=== PATIENT | female | born 1960 | race Caucasian/White ===

== ENCOUNTER 2017-10-05 06:01 | Inpatient (IN) | payer OTHER ==
[~2017-10-05 06:01] MED LIST: Buffered Lidocaine 0.9% SYRIN* 5 ML/SYR SYRINGE INTRADERM ONE; Famotidine IV* 10 MG/ML 2 ML (20 mg) IV ONE; Metoclopramide TAB* 10 MG PO ONE
--- OUTSIDE RECORDS SUMMARY | 2017-10-05 06:05 | XMS REPORT ---
:1960 External Reference #:[id number] Author Organization [employer] Address [address] [place] [address] [place] [address] Phone [phone] Care Team Providers Name Role Phone Wai Farmer MD Primary Care Physician Unavailable Payers Type Date Identification Numbers Payment Provider Subscriber Commercial Policy Number: [id number] [employer] Gretchen Jenkins PayID: [id number] [address] [place] [address] Problems Date Description Provider Status Onset: Diabetes mellitus Active Social History Type Date Description Comments Marital Status Lives With Partner Lives With 1 dog Occupation Currently Working 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 Allergies, Adverse Reactions, Alerts Date Description Reaction Status Severity Comments 09/03/2017 NKDA active Medications Medication Date Status Form Strength Qnty SIG Indications Ordering Provider Omeprazole / Active Capsules 20mg 1 by mouth Unknown 0000 DR every day Atorvastatin / Active Tablets 20mg take 1 Unknown Calcium 0000 tablet at bedtime Metformin HCL / Active Tablets 1000mg take one Unknown 0000 tablet by mouth twice a day (soon to be d/c'ed per pt 6/8/18) Iron 00// Active 1 by mouth Unknown 0000 two times per day Multivitamin 00/00/ Active Tablets 1 by mouth Unknown 0000 every day Calcium 00/00/ Active Tablets 500-125mg- 1 by mouth Unknown 500/Vitamin D 0000 Unit twice a day Ammonium / Active Cream 12% Apply Unknown Lactate 0000 topically as needed Glucagon 00/ Active Kit 1mg as needed Unknown Emergency 0000 Omnipod Pump / Active Infuses Unknown 0000 insulin as needed Humalog 00/ Active Solution 100Unit/ML As needed, Unknown 0000 determined by insulin pump Lantus / Active Solution 100Unit/ML As needed, Unknown 0000 back up for pump No Active Unknown Medications 2017 - 2017 Vital Signs Date Vital Result Comment 09/03/2017 Height 65 inches 5'5" Weight 266.00 lb Heart Rate 68 /min BP Systolic Sitting 146 mmHg Rue large cuff BP Diastolic Sitting 94 mmHg Rue large cuff Respiratory Rate 16 /min O2 % BldC Oximetry 98 % On Ra BMI (Body Mass Index) 44.3 kg/m2 Neck Circumference in inches 18.5 Results Test Date Test Result H/L Range Note Basic Metabolic Panel 10/01/2017 Sodium 137 mmol/L 135-145 1 Potassium 4.5 mmol/L 3.5-5.0 1 Chloride 104 mmol/L 101-111 1 Co2 Carbon Dioxide 28 mmol/L 22-32 1 Anion Gap 5 mmol/L 2-11 1 Glucose 125 mg/dL High 70-100 1 Blood Urea Nitrogen 14 mg/dL 6-24 1 Creatinine 0.71 mg/dL 0.51-0.95 1 BUN/Creatinine Ratio 19.7 8-20 1 Calcium 9.1 mg/dL 8.6-10.3 1 Egfr Non- 85.5 >60 1 Egfr 103.4 >60 1, 2 CBC No Diff 10/01/2017 White Blood Count 8.7 10^3/uL 3.5-10.8 1 Red Blood Count 4.54 10^6/uL 4.00-5.40 1 Hemoglobin 13.1 g/dL 12.0-16.0 1 Hematocrit 39 % 35-47 1 Mean Corpuscular Volume 85 fL 80-97 1 Mean Corpuscular Hemoglobin 29 pg 27-31 1 Mean Corpuscular HGB Conc 34 g/dL 31-36 1 Red Cell Distribution Width 14 % 10.5-15 1 Platelet Count 348 10^3/uL 150-450 1 Mean Platelet Volume 8.5 um3 7.4-10.4 1 1 AA 10/05 2 Because ethnic data is not always readily available, this report includes an eGFR for both -Americans and non- Americans. The National Kidney Disease Education Program (NKDEP) does not endorse the use of the MDRD equation for patients that are not between the ages of 18 and 70, are , have extremes of body size, muscle mass, or nutritional status, or are non- or non-. According to the National Kidney Foundation, irrespective of diagnosis, the stage of the disease is based on the level of kidney function: Stage Description GFR(mL/min/1.73 m(2)) 1 Kidney damage with normal or decreased GFR 90 2 Kidney damage with mild decrease in GFR 60-89 3 Moderate decrease in GFR 30-59 4 Severe decrease in GFR 15-29 5 Kidney failure <15 (or dialysis) Procedures Date CPT Code Description Status 09/03/2017 84617 Sleep Study Unattended,HRT Rate,Oxygen Sat,Resp Completed Effort/Airflow Encounters Type Date Location Provider CPT E/M Dx Office Visit 09/03/2017 [facility] [place] [address] R06.83 9:[facility] E66.01 Z68.44 Plan of Care Future Appointment(s):11/10/2017 8:30 am - Malissa Frazier DNP, RN, CIVILIAN JAIL OFFICER-[facility] at [facility]09/03/2017 - Floresita Munoz MDR06.83 SnoringFollow up:1 weekE66.01 Morbid (severe) obesity due to excess avbscrruO49.44 Body mass index (BMI) 60.0-69.9, adult
--- OUTSIDE RECORDS SUMMARY | 2017-10-05 06:05 | XMS REPORT ---
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 Active Onset: 06/24/2015 Mixed hyperlipidemia Wai Farmer M.D. 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 [employer] Cigarette Use Nonsmoker ETOH Use Currently consumes alcohol Smoking Patient has never smoked Daily Caffeine Consumes on average 1 cup of coffee per day Allergies, Adverse Reactions, Alerts Date Description Reaction Status Severity Comments 02/26/2011 NKDA active 02/14/1998 Nkma inactive Medications Medication Date Status Form Strength Qnty SIG Indications Ordering Provider Danica 09/06 Hx Tablets 250mg 14tab 1 by s mouth Juan Pabloorf, - twice a Afnp-C Meloxicam 11/28 Active Tablets 7.5mg 60tab take one H92.01 s tablet by Marty, mouth INSULATION BLOWER twice a day BD Pen Rufino Uf 06/13 Active Na 3unit Use With Danya Mini 5mm 31G3/ s Solostphu Gallagher, 31G316 Pen Afnp-C Omeprazole 01/[address] 20mg 90cap 1 tablet s by mouth Marty, every in INSULATION BLOWER the morning Metformin HCL 10/15 Active Tablets 1000mg 180ta 1 PO bid bs Orestes Gallagher-C BD Pen 07/01 Active Misc 31G X 5 1mont use w/ E11.65 Danya Needle/Mini/Ultra mm h Leigh Ann Gallagher fine/31G X 3/16" Pen Afnp-C Lantus Solostar 07/01 Active Solution 100Unit/M QS sliding E11.65 L scale Elliott Afnp-C Contour Blood 06/22 Active 3Mont test 3 E11.65 Danya Test Strips hs times Elliott, daily Afnp-C Maxwell Microlet 06/22 Active Misc QS Test E11.65 Danya Lanc Three Elliott, Times A Afnp-C Day Proair HFA 02/26 Active Aerosol 108(90Bas 3unit Inhale 2 466.0 e) s Puffs Elliott, mcg/Act Every 4 Afnp-C Hours as Needed Atorvastatin Active Tablets 20mg 90tab 1 by Unknown Calcium /0000 s mouth every day Humalog Active Solution 100Unit/M inject Unknown /0000 L per sliding scale as directed via insulin pump Iron Active Tablets 30mg 2 po qd Unknown /0000 Cipro 12/21 Hx Tablets 250mg 6tabs 1 by mouth Antonysdorf, - twice a Afnp-C Nitrofurantoin 12/07 Hx Capsules 100mg 14cap 1 by N39.0 Belgica Nadia Monohyd s mouth Tariq, - twice a ART HISTORY PROFESSOR 12/21 day x days Clindamycin HCL 11/28 Hx Capsules 150mg 30cap 1 by H92.01 Arianna s mouth Marty, - three INSULATION BLOWER 09/15 times day Clindamycin HCL 11/28 Hx Capsules 150mg 30cap 1 by H92.01 Arianna s mouth Marty, - three INSULATION BLOWER 09/15 times day Meloxicam 07/18 Hx Tablets 7.5mg 60tab take one s tablet by Marty, - mouth INSULATION BLOWER 11/27 twice day Clindamycin HCL 07/11 Hx Capsules 150mg 30cap 1 by H92.01 Arianna s mouth Marty, - three INSULATION BLOWER 11/27 times day Clindamycin HCL 05/17 Hx Capsules 150mg 30cap 1 by H92.01 s mouth Marty, - three INSULATION BLOWER 06/23 times day - avoid brilliant blue dye Biaxin 05/15 Hx Tablets 250mg 20tab take one H92.01 s tablet by Marty, - mouth INSULATION BLOWER 05/17 twice day x 10 days finish all medicatio n Asmanex 04/30 Hx Aerosol 110mcg/In 1 466.0 Arianna Twisthaler h inhalatio Marty, Metered Doses - n by INSULATION BLOWER 04/30 mouth twice a day samples Asmanex 04/30 Hx Aerosol 220mcg/In 1 puff 466.0 Arianna Twisthaler 120 h twice a Marty, Metered Doses - day INSULATION BLOWER 05/15 Methylprednisolon 04/30 Hx Tablets 4mg 1pack take as 466.0 Arianna directed Marty, - INSULATION BLOWER 06/08 Azithromycin 04/30 Hx Tablets 250mg 7tabs 2 take by 466.0 Arianna mouth Marty, - tabletsto INSULATION BLOWER 06/08 day, one tab days 2-5 until finished Benzonatate 04/25 Hx Capsules 200mg 30cap 1 by 488.82 Danya s mouth Elliott, - three Afnp-C 05/08 times a day as needed for cough Guaifenesin ac 04/25 Hx Syrup 100-10mg/ 4oz 1-2 488.82 5ML teaspoon Elliott, - every 4 Afnp-C 05/01 hours needed for cough Tamiflu 04/25 Hx Capsules 75mg 10cap 1 by 488.82 s mouth Elliott, - twice a Afnp-C 04/30 day x days Ciprofloxacin HCL 02/14 Hx Tablets 250mg 14tab 1 tab by 599.0 Arianna s mouth Marty, - twice a INSULATION BLOWER 04/25 day x days BD Pen Rufino Uf 09/27 Hx 3mont Use With Danya Mini 5mm hs Solostar Elliott, - Pen Afnp-C 02/14 Januvia 07/06 Hx Tablets 50mg 180ta 1 po bid daljit Gallagher, - Afnp-C 03/28 Fluconazole 06/18 Hx Tablets 150mg 2tabs 1 po ; 616.10 July Elliott, - repeat in Afnp-C 07/15 5-7 days Mycolog-II 06/18 Hx Cream 30gm apply bid 616.10 to Elliott, - affected Afnp-C 07/15 area Terconazole 06/18 Hx Cream 0.4% 1tube 1 616.10 applicato Elliott, - rfull Afnp-C 07/15 vaginally at hs x 3 Metformin HCL 06/18 Hx Tablets 500mg 360ta take 2 bs tablet by Elliott, - mouth bid Afnp-C 10/15 Valacyclovir HCL 05/14 Hx Tablets 500mg 6tabs take 1 054.11 tablet by Elliott, - mouth Afnp-C 06/18 twice a day for 3 days Terconazole 05/14 Hx Cream 0.4% 1tube 1 616.10 applicato Elliott, - rfull Afnp-C 05/17 vaginally at hs x 3 Mycolog-II 05/01 Hx Cream 30gm apply bid 616.10 to Elliott, - affected Afnp-C 06/18 area Terconazole 05/01 Hx Cream 0.4% 1tube 1 616.10 applicato Elliott, - rfull Afnp-C 05/08 vaginally at hs x 7 Fluconazole 05/01 Hx Tablets 150mg 2tabs 1 po ; 616.10 July Elliott, - repeat in Afnp-C 06/18 5-7 days Prednisone 02/26 Hx Tablets 10mg 12tab 3 tabs po 466.0 s qd x 2; 2 Elliott, - tabs po x Afnp-C 03/07 2, then tab qd x 2 Note 10/30 Hx DX: ht: Obesity 5'5" Elliott, - Wt: 263# Afnp-C 11/09 BMI: 43. advise weight loss supplemen t due to increased risk of diabetes/ heart disease Diflucan 10/25 Hx Tablets 150mg 2tabs 1 po 616.10 times 1 Elliott, - , july Afnp-C 02/26 repeat in 5-7d Biaxin-XL 04/04 Hx 500mg 20uni 2 po qd 461.0 Wai A. Parveen Reynolds M.D. 04/14 Entex Pse 04/04 Hx Caps ER 120-400 20cap 1 bid prn 461.0 Wai A. 12HR s congestio Marleny - n M.DDarcie 04/14 Avelox 02/09 Hx Tablets 400mg 10tab 1 po qd 461.0 Wai A. Parveen Gonzales M.D. 02/19 Allerx Dose Pack 02/09 Hx Tablets 8mg;2.5mg 20tab 1 po bid 461.0 Wai A ;120MG;2. s Marleny - 5M M.DDarcie 02/19 Nasonex 11/29 Hx Suspension 50mcg/Act 1unit 2 sprays 381.01 s each Elliott, - nostril Afnp-C 10/25 qd prn /2009 allergies Claritin 11/29 Hx Tablets 10mg 6tabs 1 PO qd 381.01 Elliott, - Afnp-C 10/25 Ibuprofen 05/06 Hx 600mg 60uni 1 PO Q8H ts prn With Elliott, - Food Afnp-C 07/04 Note 05/06 Hx This PT'S BMI Is Elliott, - 43: Obese Afnp-C 05/08 She Has Been RX'D W/ Meridia To Help Her Loose Weight Meridia 04/30 Hx 15mg 30uni one qd ts Elliott, - Afnp-C 03/29 Orthotricyclen 01/13 Hx Wai M. Parveen Sheth M.D. 04/30 Entex Pse 01/13 Hx 20uni 1 bid prn ts Congestio Elliott, - n Afnp-C 01/23 Glipizide Hx Tablets 5mg 60tab 1 po bid Unknown /0000 s - 04/25 Humalog Kwikpen Hx Solution 100Unit/M 15 units Unknown /0000 Pen-Inject L three - times a /2015 before meals Vital Signs Date Vital Result Comment 09/06/2017 BP Systolic 164 mmHg BP Diastolic 82 mmHg Heart Rate 64 /min Body Temperature 98.4 F Respiratory Rate 16 /min Height 65 inches 5'5" Weight 267.00 lb BMI (Body Mass Index) 44.4 kg/m2 06/02/2017 BP Systolic 132 mmHg BP Diastolic 80 mmHg Heart Rate 68 /min Body Temperature 98.6 F Respiratory Rate 16 /min Height 65 inches 5'5" Weight 266.00 lb BMI (Body Mass Index) 44.3 kg/m2 12/21/2016 BP Systolic 146 mmHg BP Diastolic 80 mmHg Heart Rate 68 /min Body Temperature 98.0 F Respiratory Rate 16 /min Height 65 inches 5'5" Weight 273.12 lb BMI (Body Mass Index) 45.4 kg/m2 12/07/2016 BP Systolic 188 mmHg BP Diastolic 94 mmHg Heart Rate 78 /min Body Temperature 97.7 F Height 65 inches 5'5" Weight 273.12 lb BMI (Body Mass Index) 45.4 kg/m2 09/15/2016 BP Systolic 142 mmHg BP Diastolic 80 mmHg Heart Rate 72 /min Body Temperature 98.5 F Respiratory Rate 16 /min Height 65 inches 5'5" Weight 270.00 lb BMI (Body Mass Index) 44.9 kg/m2 11/29/2015 BP Systolic 178 mmHg BP Diastolic 92 mmHg Heart Rate 72 /min Body Temperature 98.6 F Height 65 inches 5'5" Weight 268.25 lb BMI (Body Mass Index) 44.6 kg/m2 07/12/2015 BP Systolic 136 mmHg BP Diastolic 84 mmHg Heart Rate 80 /min Body Temperature 98.4 F Respiratory Rate 18 /min Height 65 inches 5'5" Weight 266.00 lb BMI (Body Mass Index) 44.3 kg/m2 06/24/2015 BP Systolic 126 mmHg BP Diastolic 80 mmHg Heart Rate 64 /min Body Temperature 97.9 F Respiratory Rate 20 /min Height 65 inches 5'5" Weight 266.00 lb BMI (Body Mass Index) 44.3 kg/m2 05/15/2015 BP Systolic 130 mmHg BP Diastolic 86 mmHg Heart Rate 72 /min Body Temperature 97.9 F Respiratory Rate 16 /min Height 65.5 inches 5'5.50" Weight 265.25 lb BMI (Body Mass Index) 43.5 kg/m2 04/30/2014 BP Systolic 138 mmHg BP Diastolic 84 mmHg Heart Rate 72 /min Body Temperature 98.4 F Respiratory Rate 18 /min Height 65.5 inches 5'5.50" Weight 254.12 lb BMI (Body Mass Index) 41.6 kg/m2 04/25/2014 BP Systolic 150 mmHg BP Diastolic 86 mmHg Heart Rate 100 /min Body Temperature 101.3 F Respiratory Rate 20 /min O2 % BldC Oximetry 98 % Height 65.5 inches 5'5.50" Weight 257.25 lb BMI (Body Mass Index) 42.2 kg/m2 02/14/2014 BP Systolic 130 mmHg BP Diastolic 88 mmHg Heart Rate 72 /min Body Temperature 97.9 F Respiratory Rate 20 /min Height 65.5 inches 5'5.50" Weight 259.00 lb BMI (Body Mass Index) 42.4 kg/m2 03/28/2013 BP Systolic 144 mmHg BP Diastolic 80 mmHg Heart Rate 84 /min Body Temperature 97.7 F Respiratory Rate 16 /min Height 65.5 inches 5'5.50" Weight 256.00 lb BMI (Body Mass Index) 41.9 kg/m2 01/27/2012 BP Systolic 110 mmHg BP Diastolic 70 mmHg Heart Rate 80 /min Body Temperature 98.7 F Height 65.5 inches 5'5.50" Weight 241.00 lb BMI (Body Mass Index) 39.5 kg/m2 01/15/2012 BP Systolic 122 mmHg BP Diastolic 88 mmHg Heart Rate 72 /min Body Temperature 97.7 F Height 65.5 inches 5'5.50" Weight 246.00 lb BMI (Body Mass Index) 40.3 kg/m2 10/16/2011 BP Systolic 110 mmHg BP Diastolic 82 mmHg Heart Rate 78 /min Height 65.5 inches 5'5.50" Weight 245.00 lb BMI (Body Mass Index) 40.1 kg/m2 09/16/2011 BP Systolic 120 mmHg BP Diastolic 80 mmHg Heart Rate 68 /min Body Temperature 98.0 F Height 65.5 inches 5'5.50" Weight 242.00 lb BMI (Body Mass Index) 39.7 kg/m2 07/16/2011 BP Systolic 122 mmHg BP Diastolic 82 mmHg Heart Rate 68 /min Body Temperature 98.4 F Height 65.5 inches 5'5.50" Weight 236.00 lb BMI (Body Mass Index) 38.7 kg/m2 07/02/2011 BP Systolic 112 mmHg BP Diastolic 68 mmHg Heart Rate 68 /min Height 65.5 inches 5'5.50" Weight 235.00 lb BMI (Body Mass Index) 38.5 kg/m2 06/23/2011 BP Systolic 120 mmHg BP Diastolic 78 mmHg Heart Rate 72 /min Height 65.5 inches 5'5.50" Weight 232.00 lb BMI (Body Mass Index) 38.0 kg/m2 06/19/2011 BP Systolic 130 mmHg BP Diastolic 88 mmHg Heart Rate 72 /min Height 65.5 inches 5'5.50" Weight 232.00 lb BMI (Body Mass Index) 38.0 kg/m2 05/14/2011 BP Systolic 138 mmHg BP Diastolic 80 mmHg Heart Rate 76 /min Body Temperature 98.4 F Height 65.5 inches 5'5.50" Weight 239.00 lb BMI (Body Mass Index) 39.2 kg/m2 05/01/2011 BP Systolic 130 mmHg BP Diastolic 82 mmHg Heart Rate 72 /min Body Temperature 98.7 F Respiratory Rate 15 /min Height 65.5 inches 5'5.50" Weight 240.00 lb BMI (Body Mass Index) 39.3 kg/m2 02/26/2011 BP Systolic 120 mmHg BP Diastolic 88 mmHg Heart Rate 88 /min Body Temperature 98.8 F Respiratory Rate 16 /min O2 % BldC Oximetry 97 % Height 65.5 inches 5'5.50" Weight 260.00 lb BMI (Body Mass Index) 42.6 kg/m2 10/25/2009 BP Systolic 120 mmHg BP Diastolic 84 mmHg Heart Rate 72 /min Body Temperature 98.4 F Height 65.5 inches 5'5.50" Weight 263.00 lb BMI (Body Mass Index) 43.1 kg/m2 04/04/2008 BP Systolic 132 mmHg BP Diastolic 72 mmHg Heart Rate 76 /min Body Temperature 98.9 F Height 65.5 inches 5'5.50" Weight 258.00 lb BMI (Body Mass Index) 42.3 kg/m2 Right Visual Acuity Distance 98 02/10/2008 BP Systolic 150 mmHg BP Diastolic 80 mmHg Heart Rate 80 /min Body Temperature 98.9 F Respiratory Rate 12 /min Height 65.5 inches 5'5.50" Weight 261.00 lb BMI (Body Mass Index) 42.8 kg/m2 11/30/2007 BP Systolic 110 mmHg BP Diastolic 70 mmHg Heart Rate 76 /min Body Temperature 98.6 F Height 65.5 inches 5'5.50" Weight 262.00 lb BMI (Body Mass Index) 42.9 kg/m2 10/06/2004 BP Systolic 128 mmHg BP Diastolic 74 mmHg Heart Rate 78 /min Height 65.5 inches 5'5.50" Weight 242.00 lb BMI (Body Mass Index) 39.7 kg/m2 07/04/2004 BP Systolic 140 mmHg BP Diastolic 88 mmHg Heart Rate 80 /min Height 65.5 inches 5'5.50" Weight 246.00 lb BMI (Body Mass Index) 40.3 kg/m2 06/03/2004 BP Systolic 120 mmHg BP Diastolic 92 mmHg Heart Rate 80 /min Body Temperature 98.0 F Height 65.5 inches 5'5.50" Weight 253.00 lb BMI (Body Mass Index) 41.5 kg/m2 05/06/2004 BP Systolic 130 mmHg BP Diastolic 90 mmHg Heart Rate 88 /min Height 65.5 inches 5'5.50" Weight 260.00 lb BMI (Body Mass Index) 42.6 kg/m2 08/28/2003 Height 65.5 inches 5'5.50" Weight 245.00 lb BMI (Body Mass Index) 40.1 kg/m2 08/13/2003 BP Systolic 130 mmHg BP Diastolic 90 mmHg Heart Rate 68 /min Height 65.5 inches 5'5.50" Weight 246.00 lb BMI (Body Mass Index) 40.3 kg/m2 04/30/2003 BP Systolic 136 mmHg BP Diastolic 78 mmHg Heart Rate 66 /min Height 65.5 inches 5'5.50" Weight 247.00 lb BMI (Body Mass Index) 40.5 kg/m2 01/13/1999 BP Systolic 140 mmHg LG Cuff BP Diastolic 90 mmHg LG Cuff Body Temperature 98.3 F Height 65.5 inches 5'5.50" Weight 223.00 lb 02/14/1998 BP Systolic 112 mmHg BP Diastolic 78 mmHg Weight 224.00 lb Brace On R Knee Results Test Date Test Result H/L Range Note Ua - Micro (Fma) 09/06/2017 Appearance yellow Color clear Glucose, Urine (Fma/CMC/CTX) 500mg Bilirubin neg Ketones 15mg SP Grav 1.025 Blood trace-intact PH 5.0 Protein neg Urobil 0.2 Nitrite neg Leukocytes (Fma/CMC/Centrex) trace Hyaline - /Lpf Granular - /Lpf WBC (Fma,Centrex) 8-10 RBC 0-2 Mucus - /Lpf Epith rare /Lpf Bacteria trace /Hpf Amorphous - /Lpf Crystals, Fluid (Fma/CMC/CTX) - Z#Comments - CBC Auto Diff 05/29/2017 White Blood Count 6.0 10^3/uL 3.5-10.8 Red Blood Count 4.48 10^6/uL 4.0-5.4 Hemoglobin 12.4 g/dL 12.0-16.0 Hematocrit 37 % 35-47 Mean Corpuscular Volume 82 fL 80-97 Mean Corpuscular Hemoglobin 28 pg 27-31 Mean Corpuscular HGB Conc 34 g/dL 31-36 Red Cell Distribution Width 14 % 10.5-15 Platelet Count 348 10^3/uL 150-450 Mean Platelet Volume 9 um3 7.4-10.4 Abs Neutrophils 3.0 10^3/uL 1.5-7.7 Abs Lymphocytes 2.2 10^3/uL 1.0-4.8 Abs Monocytes 0.5 10^3/uL 0-0.8 Abs Eosinophils 0.2 10^3/uL 0-0.6 Abs Basophils 0 10^3/uL 0-0.2 Abs Nucleated RBC 0 10^3/uL Granulocyte % 50.2 % 38-83 Lymphocyte % 37.4 % 25-47 Monocyte % 8.7 % High 0-7 Eosinophil % 3.1 % 0-6 Basophil % 0.6 % 0-2 Nucleated Red Blood Cells % 0 Comp Metabolic Panel 05/29/2017 Sodium 138 mmol/L 133-145 Potassium 4.3 mmol/L 3.5-5.0 Chloride 103 mmol/L 101-111 Co2 Carbon Dioxide 30 mmol/L 22-32 Anion Gap 5 mmol/L 2-11 Glucose 172 mg/dL High 70-100 Blood Urea Nitrogen 10 mg/dL 6-24 Creatinine 0.75 mg/dL 0.51-0.95 BUN/Creatinine Ratio 13.3 8-20 Calcium 8.9 mg/dL 8.6-10.3 Total Protein 6.7 g/dL 6.4-8.9 Albumin 3.9 g/dL 3.2-5.2 Globulin 2.8 g/dL 2-4 Albumin/Globulin Ratio 1.4 1-3 Total Bilirubin 0.40 mg/dL 0.2-1.0 Alkaline Phosphatase 59 U/L 34-104 Alt 11 U/L 7-52 Ast 12 U/L Low 13-39 Egfr Non- 80.5 >60 Egfr 103.6 >60 1 Iron & Iron Binding Capacity 05/29/2017 Iron 55 g/dL 50-212 Unsaturated Iron Binding 418 g/dL Total Iron Binding Capacity 473 g/dL High 250-450 % Iron Saturation 12 % Low 15-55 Laboratory test finding 05/29/2017 Cortisol 7.12 g/dL 2 TSH (Thyroid Stim Horm) 3.67 mcIU/mL 0.34-5.60 Ferritin < 10.0 ng/mL Low 11-307 Folic Acid (Folate) > 20.00 ng/mL >3.99 Vitamin B12 455 pg/mL 180-914 3 Vitamin D Total 25(Oh) 31.3 ng/mL 20-50 Hemoglobin A1c 7.9 % High 4.0-5.6 4 Vitamin B1 (Whole Blood) 158 nmol/L 70-180 5 Vitamin E Level 12.0 mg/L 5.5 - 17.0 6 Urine Microalbumin Random 05/29/2017 Ur Microalbumin (mg/L) 17.4 mg/L Urine Creatinine 143.17 mg/dL Urine Microalbumin/Creatinine 12.1 ug/mg <31 Lipid Profile (Trig/Chol/HDL) 05/29/2017 Triglycerides 80 mg/dL 7 Cholesterol 143 mg/dL 8 HDL Cholesterol 45.1 mg/dL 9 LDL Cholesterol 82 mg/dL 10 Liver Function Panel 05/29/2017 Total Protein 6.7 g/dL 6.4-8.9 Albumin 3.9 g/dL 3.2-5.2 Globulin 2.8 g/dL 2-4 Albumin/Globulin Ratio 1.4 1-3 Total Bilirubin 0.40 mg/dL 0.2-1.0 Direct Bilirubin 0.10 mg/dL 0.03-0.18 Indirect Bilirubin 0.3 mg/dL 0.3-1.0 Alkaline Phosphatase 60 U/L 34-104 Alt 11 U/L 7-52 Ast 11 U/L Low 13-39 Laboratory test finding 12/21/2016 Urine Culture (Fma/CMC) POSITIVE Ua - Micro (a) 12/21/2016 Appearance CLEAR Color YELLOW Glucose, Urine (Fma/CMC/CTX) NEG Bilirubin NEG Ketones TRACE SP Grav >=1.030 Blood TRACE-INTACT PH 5.5 Protein NEG Urobil 0.2 Nitrite NEG Leukocytes (Fma/CMC/Centrex) TRACE Hyaline - /Lpf Granular - /Lpf WBC (Fma,Centrex) 3-5 RBC 0-1 Mucus - /Lpf Epith OCC /Lpf Bacteria TRACE /Hpf Amorphous - /Lpf Crystals, Fluid (Fma/CMC/CTX) - Z#Comments - Laboratory test finding 12/07/2016 Urine Culture And SEE RESULT BELOW 11 Sensitivities Ua - Micro (Fma) 12/07/2016 Appearance cloudy Color yellow Glucose, Urine (Fma/CMC/CTX) 500 mg/dL Bilirubin neg Ketones 15mg/dL SP Grav 1.020 Blood moderate PH 5.5 Protein ssa 1+ Urobil 0.2 Nitrite positive Leukocytes (Fma/CMC/Centrex) small Hyaline - /Lpf Granular - /Lpf WBC (Fma,Centrex) >25 RBC >50 Mucus - /Lpf Epith occass /Lpf Bacteria 3+ /Hpf Amorphous - /Lpf Crystals, Fluid (Fma/CMC/CTX) - Z#Comments - Urine Microalbumin Random 04/21/2016 Urine Creatinine 138.79 mg/dL Ur Microalbumin (mg/L) < 15.0 mg/L Urine Microalbumin/Creatinine TNP ug/mg <31 12 Liver Function Panel 04/21/2016 Direct Bilirubin 0.10 mg/dL 0.03-0.18 Indirect Bilirubin 0.4 mg/dL 0.3-1.0 Lipid Profile (Trig/Chol/HDL) 04/21/2016 Triglycerides 90 mg/dL 13 Cholesterol 138 mg/dL 14 HDL Cholesterol 40.1 mg/dL 15 LDL Cholesterol 80 mg/dL 16 Comp Metabolic Panel 04/21/2016 Sodium 137 mmol/L 133-145 Potassium 4.2 mmol/L 3.5-5.0 Chloride 104 mmol/L 101-111 Co2 Carbon Dioxide 30 mmol/L 22-32 Anion Gap 3 mmol/L 2-11 Glucose 128 mg/dL High 70-100 Blood Urea Nitrogen 14 mg/dL 6-24 Creatinine 0.69 mg/dL 0.51-0.95 BUN/Creatinine Ratio 20.3 High 8-20 Calcium 9.0 mg/dL 8.6-10.3 Total Protein 6.7 g/dL 6.4-8.9 Albumin 3.9 g/dL 3.2-5.2 Globulin 2.8 g/dL 2-4 Albumin/Globulin Ratio 1.4 1-3 Total Bilirubin 0.50 mg/dL 0.2-1.0 Alkaline Phosphatase 48 U/L 34-104 Alt 10 U/L 7-52 Ast 10 U/L Low 13-39 Egfr Non- 89.0 >60 Egfr 114.5 >60 17 CBC No Diff 04/21/2016 White Blood Count 5.9 10^3/uL 3.5-10.8 Red Blood Count 4.54 10^6/uL 4.0-5.4 Hemoglobin 13.0 g/dL 12.0-16.0 Hematocrit 39 % 35-47 Mean Corpuscular Volume 85 fL 80-97 Mean Corpuscular Hemoglobin 29 pg 27-31 Mean Corpuscular HGB Conc 34 g/dL 31-36 Red Cell Distribution Width 14 % 10.5-15 Platelet Count 359 10^3/uL 150-450 Mean Platelet Volume 9 um3 7.4-10.4 Ua - Micro (a) 07/11/2015 Appearance CLEAR Color YELLOW Glucose, Urine (Fma/CMC/CTX) 100mg/dL Known Diabetic Bilirubin NEG Ketones NEG SP Grav 1.020 Blood TRACE-INTACT PH 7.0 Protein NEG Urobil 0.2 Nitrite NEG Leukocytes (Fma/CMC/Centrex) NEG Hyaline - /Lpf Granular - /Lpf WBC (Fma,Centrex) - RBC 1-2 Mucus (Fma/CBC/Centrex) - /Lpf Epith RARE /Lpf Bacteria TRACE /Hpf Amorphous (Fma/CMC/Centrex) - /Lpf Crystals, Fluid (Fma/CMC/CTX) - Z#Comments - Laboratory test finding 07/11/2015 Urine Culture And SEE RESULT BELOW 18 Sensitivities Ua - Micro (a) 06/24/2015 Appearance clear Color yellow Glucose, Urine (Fma/CMC/CTX) neg Bilirubin neg Ketones neg SP Grav 1.010 Blood moderate PH 6.5 Protein neg Urobil 0.2 Nitrite neg Leukocytes (Fma/CMC/Centrex) neg Hyaline - /Lpf Granular - /Lpf WBC (Fma,Centrex) 0-2 RBC 3-5 Mucus - /Lpf Epith occass /Lpf Bacteria trace /Hpf Amorphous - /Lpf Crystals, Fluid (Fma/CMC/CTX) - Z#Comments - Urine Culture Routine 06/24/2015 Urine Culture, Routine Final report 19 , 20 Result 1 No growth 19, 21 Comp Metabolic-[facility] 06/19/2015 Sodium 136 mmol/L 133-145 22 Potassium 4.1 mmol/L 3.5-5.0 22 Chloride 103 mmol/L 101-111 22 Co2 Carbon Dioxide 28 mmol/L 22-32 22 Anion Gap 5 mmol/L 2-11 22 Glucose 166 mg/dL High 70-100 22 Blood Urea Nitrogen 11 mg/dL 6-24 22 Creatinine 0.73 mg/dL 0.51-0.95 22 BUN/Creatinine Ratio 15.1 8-20 22 Calcium 8.9 mg/dL 8.6-10.3 22 Total Protein 6.4 g/dL 6.4-8.9 22 Albumin 3.8 g/dL 3.2-5.2 22 Globulin 2.6 g/dL 2-4 22 Albumin/Globulin Ratio 1.5 1-3 22 Total Bilirubin 0.60 mg/dL 0.2-1.0 22 Alkaline Phosphatase 43 U/L 34-104 22 Alt 11 U/L 7-52 22 Ast 9 U/L Low 13-39 22 Egfr Non- 83.7 >60 22 Egfr 107.7 >60 22, 23 Lipid Panel-[facility] 06/19/2015 Triglycerides 87 mg/dL 22, 24 Cholesterol 136 mg/dL 22, 25 HDL Cholesterol 40.9 mg/dL 22, 26 LDL Cholesterol 78 mg/dL 22, 27 Laboratory test finding 06/19/2015 TSH (Thyroid Stim 3.69 ?IU/mL 0.34- 5.60 22, 28 Horm) CBC Electronic-[facility] 06/19/2015 White Blood Count 6.3 10^3/uL 3.5-10.8 22 [facility]ani Red Blood Count 4.37 10^6/uL 4.0-5.4 22 Hemoglobin 13.0 g/dL 12.0-16.0 22 Hematocrit 39 % 35-47 22 Mean Corpuscular Volume 89 fL 80-97 22 Mean Corpuscular Hemoglobin 30 pg 27-31 22 Mean Corpuscular HGB Conc 34 g/dL 31-36 22 Red Cell Distribution Width 13 % 10.5-15 22 Platelet Count 299 10^3/uL 150-450 22 Mean Platelet Volume 9 um3 7.4-10.4 22 Abs Neutrophils 3.4 10^3/uL 1.5-7.7 22 Abs Lymphocytes 2.1 10^3/uL 1.0-4.8 22 Abs Monocytes 0.5 10^3/uL 0-0.8 22 Abs Eosinophils 0.2 10^3/uL 0-0.6 22 Abs Basophils 0 10^3/uL 0-0.2 22 Abs Nucleated RBC 0 10^3/uL 22 Granulocyte % 54.4 % 38-83 22 Lymphocyte % 32.9 % 25-47 22 Monocyte % 8.5 % 1-9 22 Eosinophil % 3.6 % 0-6 22 Basophil % 0.6 % 0-2 22 Nucleated Red Blood Cells % 0 22 Laboratory test 06/19/2015 Hemoglobin A1c 7.7 % High Less than 6.0 22, 29 finding (Glyco HGB) Comp Metabolic 09/01/2014 Sodium 138 mmol/L 133-145 22 Panel Potassium 4.3 mmol/L 3.5-5.0 22 Chloride 105 mmol/L 101-111 22 Co2 Carbon Dioxide 29 mmol/L 22-32 22 Anion Gap 4 mmol/L 2-11 22 Glucose 132 mg/dL High 70-100 22 Blood Urea Nitrogen 12 mg/dL 6-24 22 Creatinine 0.72 mg/dL 0.51-0.95 22 BUN/Creatinine Ratio 16.7 8-20 22 Calcium 8.6 mg/dL 8.6-10.3 22 Total Protein 6.4 g/dL 6.4-8.9 22 Albumin 3.9 g/dL 3.2-5.2 22 Globulin 2.5 g/dL 2-4 22 Albumin/Globulin Ratio 1.6 1-3 22 Total Bilirubin 0.40 mg/dL 0.2-1.0 22 Alkaline Phosphatase 45 U/L 34-104 22 Alt 12 U/L 7-52 22 Ast 12 U/L Low 13-39 22 Egfr Non- 85.4 >60 22 Egfr 109.8 >60 22, 30 Lipid Profile (Trig/Chol/HDL) 09/01/2014 Triglycerides 66 mg/dL 22, 31 Cholesterol 129 mg/dL 22, 32 HDL Cholesterol 36.6 mg/dL 22, 33 LDL Cholesterol 79 mg/dL 22, 34 Liver Function Panel 09/01/2014 Direct Bilirubin 0.10 mg/dL 0.03-0.18 22 Indirect Bilirubin 0.3 mg/dL 0.3-1.0 22 Urine Microalbumin Random 09/01/2014 Ur Microalbumin (mg/L) 49.0 mg/L 22 Urine Creatinine 173.31 mg/dL 22 Urine Microalbumin/Creatinine 28.2 ug/mg <31 22 Influenza A&B-fma 04/25/2014 Influenza A pos Influenza B neg Ua - Micro (Fma) 02/14/2014 Appearance CLEAR Color YELLOW Glucose, Urine (Fma/CMC/CTX) 500MG/DL High HX:DM Bilirubin NEG Ketones 15MG/DL SP Grav >=1.030 Blood SMALL PH 5.5 Protein NEG Urobil 0.2 Nitrite NEG Leukocytes (Fma/CMC/Centrex) NEG Hyaline - /Lpf Granular - /Lpf WBC (Fma,Centrex) 5-6 RBC 2-3 Mucus (Fma/CBC/Centrex) - /Lpf Epith RARE /Lpf Bacteria 1+ /Hpf Amorphous (Fma/CMC/Centrex) - /Lpf Crystals, Fluid (Fma/CMC/CTX) - Z#Comments - Urine Microalbumin Random 12/05/2013 Ur Microalbumin (mg/L) 14.0 mg/dL < 30 35 Urine Creatinine 50.11 mg/dL Urine Microalbumin/Creatinine 27.9 Less Than 31 Comp Metabolic Panel 08/22/2013 Sodium 139 mmol/L 133-145 Potassium 4.1 mmol/L 3.7-5.6 Chloride 105 mmol/L 101-111 Co2 Carbon Dioxide 28 mmol/L 22-32 Anion Gap 6 mmol/L 2-11 Glucose 151 mg/dL High 70-100 Blood Urea Nitrogen 14 mg/dL 6-24 Creatinine 0.69 mg/dL 0.51-0.95 BUN/Creatinine Ratio 20.3 High 8-20 Calcium 8.7 mg/dL 8.6-10.3 Total Protein 6.7 g/dL 6.4-8.9 Albumin 4.1 g/dL 3.2-5.2 Globulin 2.6 g/dL 2-4 Albumin/Globulin Ratio 1.6 1-3 Total Bilirubin 0.70 mg/dL 0.2-1.0 Alkaline Phosphatase 50 U/L 34-104 Alt 17 U/L 7-52 Ast 16 U/L 13-39 Egfr Non- 90.1 >60 Egfr 115.8 >60 36 Lipid Profile (Trig/Chol/HDL) 08/22/2013 Triglycerides 100 mg/dL 37 Cholesterol 132 mg/dL 38 HDL Cholesterol 37.6 mg/dL 39 LDL Cholesterol 74 mg/dL 40 Laboratory test finding 08/22/2013 Vitamin B12 533 pg/mL 180-914 41 TSH (Thyroid Stimulating Horm) 2.40 IU/mL 0.34-5.60 42 Ua - Micro (Fma) 03/28/2013 Appearance clear Color yellow Glucose neg Bilirubin neg Ketones neg SP Grav 1.025 Blood trace-intact menses PH 6.5 Protein neg Urobil 0.2 Nitrite neg Leukocytes (Fma/CMC/Centrex) neg Hyaline - /Lpf Granular - /Lpf WBC (Fma,Centrex) - RBC 0-2 Mucus - /Lpf Epith - /Lpf Bacteria - /Hpf Amorphous - /Lpf Crystals, Fluid (Fma/CMC/CTX) - Z#Comments - Comp Metabolic Panel 10/22/2012 Sodium 138 mmol/L 133-145 Potassium 4.6 mmol/L 3.5-5.0 Chloride 104 mmol/L 101-111 Co2 Carbon Dioxide 28.0 mmol/L 22-32 Anion Gap 6.0 mmol/L 2-11 Glucose 133 mg/dL High 70-100 Blood Urea Nitrogen 10 mg/dL 6-24 Creatinine 0.70 mg/dL 0.50-1.40 BUN/Creatinine Ratio 14.3 8-20 Calcium 9.0 mg/dL 8.1-9.9 Total Protein 6.1 g/dL Low 6.2-8.1 Albumin 3.8 g/dL 3.6-5.4 Globulin 2.3 g/dL 2-4 Albumin/Globulin Ratio 1.7 1-3 Total Bilirubin 0.7 mg/dL 0.4-1.5 Alkaline Phosphatase 36 U/L 30-110 Alt 17 U/L 14-54 Ast 17 U/L 12-42 Egfr Non- 88.6 >60 Egfr 113.9 >60 43 Lipid Profile (Trig/Chol/HDL) 10/22/2012 Triglycerides 124 mg/dL 40-200 Cholesterol 182 mg/dL Less than 200 HDL Cholesterol 40 mg/dL 40-60 44 Cholesterol/HDL Ratio 4.6 Average High 1-4.44 LDL Cholesterol 117.2 High Less Than 100 45 Comp Metabolic Panel 05/28/2012 Sodium 141 mmol/L 133-145 Potassium 4.3 mmol/L 3.5-5.0 Chloride 106 mmol/L 101-111 Co2 Carbon Dioxide 29.0 mmol/L 22-32 Anion Gap 6.0 mmol/L 2-11 Glucose 114 mg/dL High 70-100 Blood Urea Nitrogen 11 mg/dL 6-24 Creatinine 0.70 mg/dL 0.50-1.40 BUN/Creatinine Ratio 15.7 8-20 Calcium 9.6 mg/dL 8.1-9.9 Total Protein 6.8 g/dL 6.2-8.1 Albumin 3.9 g/dL 3.6-5.4 Globulin 2.9 g/dL 2-4 Albumin/Globulin Ratio 1.3 1-3 Total Bilirubin 0.4 mg/dL 0.4-1.5 Alkaline Phosphatase 44 U/L 30-110 Alt 15 U/L 14-54 Ast 14 U/L 12-42 Egfr Non- 88.9 >60 Egfr 114.4 >60 46 Lipid Profile (Trig/Chol/HDL) 05/28/2012 Triglycerides 141 mg/dL 40-200 Cholesterol 193 mg/dL Less than 200 HDL Cholesterol 37 mg/dL Low 40-60 47 Cholesterol/HDL Ratio 5.2 Average High 1-4.44 LDL Cholesterol 127.8 mg/dL High Less Than 100 48 Laboratory test finding 05/28/2012 Vitamin B12 473 pg/mL 180-914 49 TSH (Thyroid Stimulating Horm) 3.65 miu/mL 0.34-5.60 50 Thyroid Peroxidase Antibodies 1.5 IU/mL Less Than 9.0 51 Surgical Pathology 05/03/2012 S RUN DATE: <SEE NOTE> Urine Microalbumin Random 03/02/2012 Ur Microalbumin (Mg/L) 7.0 mg/L 53 Urine Creatinine 127.6 mg/dL Urine Microalbumin/Creatinine 5.5 UG/MG Less Than 31 Iron & Iron Binding Capacity 03/02/2012 Iron 114 UG/ML 28-170 Unsaturated Iron Binding 254 g/dL Total Iron Binding Capacity 368 g/dL 250-450 Transferrin 263.0 % Iron Saturation 31 % 15-55 Laboratory test finding 03/02/2012 Ferritin 50 ng/mL 11-307 Cortisol 5.2 g/dL 54 Laboratory test finding 03/02/2012 C Peptide 3.4 ng/mL 1.1 - 4.4 55 Diabetes Autoimmune Test 03/02/2012 Human Insulin Antibody 0.00 nmol/L 0.00-0.02 Group Anti Marco Antonio 65 Antibody 3.73 nmol/L <=0.02 Islet Cell Antigen 512 Ab 0.48 nmol/L <=0.02 56 Diabetes Mellitus Type 1 Comm See Comment 57 Laboratory test finding 01/15/2012 Hemoglobin A1c 6.6 % High 4.1-5.7 (Fma/CMC,CX) Laboratory test finding 09/16/2011 Hemoglobin A1c 7.1 % High 4.1-5.7 (Fma/CMC,CX) Ua - Micro (Fma) 09/16/2011 Appearance SLT CLOUDY Color YELLOW Glucose 100MG/DL Bilirubin NEG Ketones NEG SP Grav 1.025 Blood SMALL PH 7.0 Protein NEG Urobil 0.2 Nitrite NEG Leukocytes (Fma/CMC/Centrex) NEG Hyaline - /Lpf Granular - /Lpf WBC (Fma,Centrex) 0-2 RBC 2-3 Mucus - /Lpf Epith LRG AMT /Lpf Bacteria TRACE /Hpf Amorphous - /Lpf Crystals, Fluid (Fma/CMC/CTX) - Z#Comments SEE COMMENTS 58 Comprehensive Metabolic Prof 06/19/2011 Albumin 4.5 g/dL 3.8-5.5 Alk. Phos. 63 U/L 30-110 Alt (SGPT) 12 U/L 7-35 Ast (Sgot) 8 U/L 5-34 BUN 14 mg/dL 6-26 Calcium 9.2 mg/dL 8.6-10.2 Chloride 98 mEq/L 94-112 Creatinine 0.7 mg/dL 0.6-1.4 Carbon Dioxide 21 mEq/L 21-32 Glucose 418 mg/dL High 70-105 59 Sodium 136 mEq/L 134-149 Total Bilirubin 0.5 mg/dL 0.2-1.3 Total Protein 7.1 g/dL 6.3-8.1 Potassium 4.8 mEq/L 3.6-5.5 Globulin 2.6 g/dL 2.0-4.8 A/G Ratio 1.7 Calc 0.6-2.2 BUN/Creat Ratio 20.4 Calc 8.0-36.0 Laboratory test finding 06/19/2011 TSH 3.53 mIU/L 0.50-6.00 Free T4 1.00 ng/dL 0.75-1.54 Laboratory test finding 06/19/2011 Hemoglobin A1c (Fma/CMC,CX) 13.7 % High 4.1-5.7 CBC Electronic (a) 06/19/2011 WBC 5.6 3.6-9.6 RBC 4.88 3.90-5.70 Hemoglobin (Fma/CMC/CTX) 15.2 g/dL 12.1 - 17.2 Hematocrit (Fma/CMC/CTX) 45.6 % 36.1 - 50.3 Platelets 322 10^3/ul 150-400 Lymph% 33.5 20.5-51.1 Mixed% 4.5 Neutrophils % 62.0 Mean Corpuscular Vol 93 82.2-97.4 Mean Corpuscular Hemoglobin 31.1 27.6-33.3 Mean Corpuscular Hemo Concen 33.3 32.0-36.0 RDW 12.5 11.6-13.7 Mean Platelet Volume 8.0 6.5-11.0 Vaginitis Dna Probe Screen 05/01/2011 Screen Trichomonas Vaginalis NEGATIVE Dna Screen Gardnerella Vaginalis Dna NEGATIVE Screen [facility] Species Dna POSITIVE Laboratory test finding 05/01/2011 Herpes Culture With Herpes simplex v 60 Typing <SEE NOTE> CBC (Fma) 11/22/2009 WBC 6.1 3.6-9.6 RBC 4.86 3.90-5.70 Hemoglobin (Fma/CMC/CTX) 14.6 g/dL 12.1 - 17.2 Hematocrit (Fma/CMC/CTX) 44.5 % 36.1 - 50.3 Mean Corpuscular Vol 91.6 82.2-97.4 Mean Corpuscular Hemaglobin 30.0 27.6-33.3 Mean Corpuscular Hemo Concen 32.8 Low 33.0-36.0 Platelets 349 10^3/ul 150-400 Lymph% 38.2 20.5-51.1 Mixed% 7.5 Neutrophils % 54.3 RDW 12.8 11.6-13.7 Mean Platelet Volume 11.2 High 7.4-10.4 Lipid Profile 11/22/2009 Cholesterol 166 mg/dL 120-200 HDL 37 mg/dL 30-85 Triglycerides 230 mg/dL High 30-200 HDL Risk Factor 4.5 CALC 4.2-7.0 LDL (Calculated) 82 CALC 0-129 VLDL (Calculated) 46 mg/dL 0-50 Laboratory test finding 11/22/2009 TSH 2.59 mIU/L 0.50-6.00 Comprehensive Metabolic Prof 11/22/2009 Albumin 4.3 g/dL 3.8-5.5 Alk. Phos. 59 U/L 30-110 Alt (SGPT) 17 U/L 7-35 Ast (Sgot) 13 U/L 5-34 BUN 15 mg/dL 6-26 Calcium 8.9 mg/dL 8.6-10.2 Chloride 98 mEq/L 94-112 Creatinine 0.9 mg/dL 0.6-1.4 Carbon Dioxide 26 mEq/L 21-32 Glucose 138 mg/dL High 70-105 Sodium 136 mEq/L 134-149 Total Bilirubin 0.4 mg/dL 0.2-1.3 Total Protein 7.1 g/dL 6.3-8.1 Potassium 4.3 mEq/L 3.6-5.5 Globulin 2.8 g/dL 2.0-4.8 A/G Ratio 1.5 Calc 0.6-2.2 BUN/Creat Ratio 16.3 Calc 8.0-36.0 Laboratory test 10/25/2009 Thin Prep W/HPV(Lsil/KAVON/Asc) SEE NOTE 61 finding Ua - Micro ([facility]) 10/25/2009 Appearance SLIGHTLY CLOUDY Color YELLOW Glucose NEG Bilirubin NEG Ketones NEG SP Grav 1.020 Blood MODERATE PH 7.0 Protein NEG Urobil 0.2 E.U./dL Nitrite NEG Leukocytes (a/CMC/Centrex) SMALL Hyaline - /Lpf Granular - /Lpf WBC ([facility]rex) 0-2 RBC 0-1 Mucus - /Lpf Epith MANY /Lpf Bacteria - /Hpf Amorphous - /Lpf Crystals, Fluid (a/CMC/CTX) - Z#Comments - Lipid Profile ([facility]) 05/16/2003 Cholesterol ([facility] [place] 197 mg/dL 120-200 Triglyceride 145 mg/dL 30-200 HDL-Chol 54 30-85 LDL, Calculated ([facility] [place] 115 CALC 0-129 VLDL 29 0-50 HDL Risk Factor ([facility]) 3.7 CALC Low 4.2-7.0 Laboratory test finding 05/16/2003 TSH ([facility] [place] 4.36 uIU/ml 0.5- 6.0 CBC Electronic ([facility]) 05/16/2003 WBC 7.5 3.6-9.6 Lymphocytes 24.1 % 20.5 - 51.1 Monocytes 5.2 % 1.7-9.3 Granulocytes 70.7 % 42.2 - 75.2 Lymphocytes 1.8 10^3/uL 0.7 - 4.9 Monocytes 0.4 10^3/uL 0.1 - 0.9 Granulocytes 5.3 10^3/uL 1.5 - 7.2 RBC 4.65 3.90-5.70 Hemoglobin (a/CMC/CTX) 14.5 g/dL 12.1 - 17.2 Hematocrit (a/CMC/CTX) 43.5 % 36.1 - 50.3 Mean Corpuscular Vol 93.5 82.2-97.4 Mean Corpuscular Hemaglobin 31.2 27.6-33.3 Mean Corpuscular Hemo Concen 33.4 33.0-35.5 RDW 11.8 11.6-13.7 Platelets 397 10^3/ul 150-400 Mean Platelet Volume 8.3 7.4-10.4 General Health Profile (a) 05/16/2003 Sodium 140 134-149 Potassium 5.0 3.6-5.5 Chloride 105 mEq/L 94-112 Co2 26 21-32 Glucose, Serum (Fma/CMC/CTX) 84 mg/dL 70-118 BUN (Fma/CMC/Centrex) 14 mg/dL 6-26 Creatinine (Fma/CMC/CTX) 0.7 mg/dL 0.6-1.4 Calcium (Fma/CMC/Centrex) 9.3 mg/dL 8.6-10.0 Total Protein 7.5 g/dL 6.3-8.1 Albumin (Fma/CMC/Centrex) 4.7 3.8-5.5 Alkaline Phosphatase (F/C/CTX) 54 U/L 30-110 Ast (Sgot) (Fma/CMC/Centrex) 12 U/mL 5-34 Bilirubin, Total 0.6 mg/dL 0.2-1.3 Ua - Non Micro (a New) 04/30/2003 Appearance CLEAR Color LT. YELLOW Glucose, Urine (Fma/CMC/CTX) NEGATIVE Bilirubin NEGATIVE Ketones 1+ SP Grav >=1.030 Blood 1+ LMP: 1-25-04 PH 5.0 Protein NEGATIVE Urobil 0.2 E.U./dL Nitrite NEGATIVE Leukocytes (Fma/CMC/Centrex) NEGATIVE 1 Because ethnic data is not always readily [...] 15-29 5 Kidney failure <15 (or dialysis) 2 AM 8.7-22.4 PM <10 3 Normal Range 180 to 914 Indeterminate Range 145 to 180 Deficient Range <145 4 Therapeutic target for the treatment of diabetes mellitus patients is <7% HBA1C, and in selective patients <6.0%. Please refer to [employer] diabetic care guidelines for further information. 5 ADDITIONAL INFORMATION This test was developed and its performance characteristics determined by [facility] in a manner consistent with CLIA requirements. This test has not been cleared or approved by the U.S. Food and Drug Administration. Test Performed by: [facility] - [address] [address] 6 ADDITIONAL INFORMATION This test was developed and its performance characteristics determined by [facility] in a manner consistent with CLIA requirements. This test has not been cleared or approved by the U.S. Food and Drug Administration. Test Performed by: [facility] [place] [address] 7 Desirable: <150 Borderline High: 150-199 High: 200-499 Very High: >500 8 Desirable: <200 Borderline High: 200-239 High: >239 9 Low: <40 Desirable: 40-60 High: >60 10 Desirable: <100 Near Optimal: 100-129 Borderline High: 130-159 High: 160-189 Very High: >189 11 SEE RESULT BELOW Name: GRETCHEN JENKINS : [address]: Belgica Tariq NP Acct: [id number] Unit: [id number] AGE: 56 Location: [facility] Re12/07/16 SEX: F Status: REG REF SPEC: [id number] CRISTIANE: 12/07/16-[address]: Belgica Tariq NP REQ: [id number] RECD: 12/07/16 STATUS: COMP _ SOURCE: URINE SPDESC: ORDERED: Urine Culture COMMENTS: [id number] [address] [facility] Urine Source: Random Procedure Result Reported Site Urine Culture Final 12/09/16- 0843 ML Organism 1 ESCHERICHIA COLI [place] Count >100,000 (Many) CFU/ML 1. ESCHERICHIA COLI M.I.C. RX --------- ------ Ampicillin <=2 S Cefazolin <=4 S Cefepime <=1 S Ceftriaxone <=1 S Ciprofloxacin <=0.25 S Gentamicin <=1 S Levofloxacin <=0.12 S Meropenem <=0.25 S Nitrofurantoin <=16 S Tetracycline <=1 S Pipercillin/Tazobactam <=4 S Trimethoprim/Sulfamethoxazole <=20 S Amoxicillin/Clavulanic Acid <=2 S Aztreonam <=1 S Contact the Microbiology Department for any additional antibiotic reporting. * ML - MAIN LAB ([facility]) . END OF REPORT * ML=Testing performed at Main Lab DEPARTMENT OF PATHOLOGY, [address] [place] [address] Wai Bagley M.D. Director [facility] # [id number] 12 Unable to calculate due to low microalbumin 13 Desirable <150 Borderline high 150-199 High 200-499 Very High >500 14 Desirable <200 Borderline high 200-239 High >239 15 Low <40 Desirable: 40-60 High: >60 16 Desirable: <100 mg/dL Near Optimal: 100-129 mg/dL Borderline High: 130-159 mg/dL High: 160-189 mg/dL Very High: >189 mg/dL 17 Because ethnic data is not always readily [...] 15-29 5 Kidney failure <15 (or dialysis) 18 SEE RESULT BELOW Name: GRETCHEN JENKINS : [address]: Wai Farmer MD Acct: [id number] Unit: [id number] AGE: 54 Location: [facility] Re07/11/15 SEX: F Status: REG REF SPEC: [id number] CRISTIANE: 07/11/15-[address]: Wai Farmer MD REQ: [id number] RECD: 07/11/15 STATUS: COMP _ SOURCE: URINE SPDESC: ORDERED: Urine Culture COMMENTS: URINE IN VACUTAINER Procedure Result Reported Site Urine Culture Final 07/13/15- 0915 ML No growth of clinically significant organisms * ML - MAIN LAB ([facility]) . END OF REPORT * ML=Testing performed at Main Lab DEPARTMENT OF PATHOLOGY, [address] [place] [address] Wai Bagley M.D. Director [facility] # [id number] SRC: URINE 20 Source of Specimen: URINE 21 Source of Specimen: URINE 22 PT IS FASTING 23 Because ethnic data is not always readily [...] 15-29 5 Kidney failure <15 (or dialysis) 24 Desirable <150 Borderline high 150-199 High 200-499 Very High >500 25 Desirable <200 Borderline high 200-239 High >239 26 Low <40 Desirable: 40-60 High: >60 27 Desirable: <100 mg/dL Near Optimal: 100-129 mg/dL Borderline High: 130-159 mg/dL High: 160-189 mg/dL Very High: >189 mg/dL 28 PT IS FASTING 29 Therapeutic target for the treatment of diabetes Mellitus patients is <7% HBA1C, and in selective patients <6.0%.Please refer to [employer] Diabetes Association Diabetic care guidelines for further information. 30 Because ethnic data is not always readily [...] 15-29 5 Kidney failure <15 (or dialysis) 31 Desirable <150 Borderline high 150-199 High 200-499 Very High >500 32 Desirable <200 Borderline high 200-239 High >239 33 Low <40 Desirable: 40-60 High: >60 34 Desirable: <100 mg/dL Near Optimal: 100-129 mg/dL Borderline High: 130-159 mg/dL High: 160-189 mg/dL Very High: >189 mg/dL 35 Microalbuminuria in a random sample is defined as: Microalbumin/Creatinine ratio of 30-299 ug/mg. 36 Because ethnic data is not always readily [...] 15-29 5 Kidney failure <15 (or dialysis) 37 Desirable <150 Borderline high 150-199 High 200-499 Very High >500 38 Desirable <200 Borderline high 200-239 High >239 39 Low <40 Desirable: 40-60 High: >60 40 Desirable <100 Near Optimal 100-129 Borderline high 130-159 High 160-189 Very High >189 41 Normal Range 180 to 914 Indeterminate Range 145 to 180 Deficient Range <145 42 PT IS FASTING 43 Because ethnic data is not always readily [...] 15-29 5 Kidney failure <15 (or dialysis) 44 HDL Interpretation: Undesirable: High Risk: Less than 40 mg/dL Desirable: Low Risk: Greater than 60 mg/dL 45 LDL Interpretation: Low Risk Optimal Level: LDL Less than 100 mg/dL Near or Above Optimal: LDL 100-129 mg/dL Borderline High Risk: LDL 130-159 mg/dL High Risk: LDL 160-189 mg/dL Very High Risk: LDL Greater than 189 mg/dL 46 Because ethnic data is not always readily [...] 15-29 5 Kidney failure <15 (or dialysis) 47 HDL Interpretation: Undesirable: High Risk: Less than 40 MG/DL Desirable: Low Risk: Greater than 60 MG/DL 48 LDL Interpretation: Low Risk Optimal Level: LDL Less than 100 MG/DL Near or Above Optimal: LDL 100-129 MG/DL Borderline High Risk: LDL 130-159 MG/DL High Risk: LDL 160-189 MG/DL Very High Risk: LDL Greater than 189 MG/DL 49 PT IS FASTING 50 PT IS FASTING 51 PT IS FASTING 52 RUN DATE: 05/05/12 [facility] LAB LIVE PAGE 1 RUN TIME: [address] [place] [address] Specimen Inquiry Name: GRETCHEN JENKINS : [address]: Gilmar Cervantes MD Acct: [id number] Unit: [id number] AGE: 51 Location: [facility] Re05/03/12 SEX: F Status: REG REF SPEC: [id number] CRISTIANE: 05/03/12- SUBM DR: Gilmar Cervantes MD REQ: [id number] RECD: 05/04/12 STATUS: JANELLE CURRY DR: Wai Farmer MD _ ORDERED: LEVEL IV FINAL DIAGNOSIS Colon, random biopsies: A. Large intestinal mucosa with minimal architectural disorder and scattered mucophages. B. No evidence of microscopic/lymphocytic colitis, collagenous colitis, or other chronic inflammatory bowel process is identified. COMMENTS: Findings are most suggestive of a resolving prior insult. CLINICAL HISTORY Change in bowel habits. Normal random biopsies. GROSS DESCRIPTION The specimen is received in formalin labeled Gretchen Snowberger, Random Colon Biopsies and consists of multiple walton, soft tissue fragments measuring 0.9 x 0.9 x 0.2 cm. in aggregate. Submitted entirely, one cassette. Signed (signature on file) Wai Bagley MD 1504 END OF REPORT * ML=Testing performed at Main Lab DEPARTMENT OF PATHOLOGY, [address] [place] [address] Wai Bagley M.D. Director [facility] Permit #[id number] Microalbuminuria in a random sample is defined as: Microalbumin/Creatinine ratio of 30-299 ug/mg. 54 AM Cortisol 8.7-22.4 PM Cortisol Less than 10 55 Test Performed by: [address] [address] [employer] Keyholder: Bora Mercado III, M.D. 56 Test Performed by: [address] [address] [employer] Keyholder: Bora Mercado III, M.D. 57 The following antibodies were identified: Glutamic Acid Decarboxylase and Islet Antigen 2 (IA-2). * This profile is consistent with a diagnosis of type 1 diabetes mellitus. When found in isolation, the sensitivities of these autoantibodies for type 1 diabetes are 91% (GAD65 antibody), 74% (IA-2 antibody), and 49% (insulin antibody). When more than 1 autoantibody is found, the combined sensitivity for type 1 diabetes is 98%, with a specificity of 98-100%. * These autoantibodies may also be detectable before the clinical onset of diabetes. The cumulative risk of a seropositive patient developing diabetes is 17% for 1 antibody, 39% for 2 antibodies and 70% for 3 antibodies. * References: Yemi LEY. Clinical applications of diabetes antibody testing. The Journal of clinical endocrinology and metabolism 2010;95:25-33. * 58 NOT A CLEAN CATCH 59 result reena'd and triaged provider 60 Herpes simplex virus type II HERPES CULTURE WITH TYPING organism 1 Herpes simplex virus type II 61 [employer]. DEPARTMENT OF PATHOLOGY or Extension 0983 CABLE SPLICER CYTOLOGY REPORT PATIENT: GRETCHEN JENKINS : 1960 AGE: 49 Y SEX: F ACCT: [id number] PROCEDURE DATE: 10/25/2009 DATE RECEIVED: 10/28/2009 REQUESTING PHYSICIAN: DANYA GALLAGHER NP LOCATION: [facility] [place] Case No. [id number] PATIENT DATA: [id number] SPECIMEN SUBMITTED: * * (HPVII) THIN PREP W/HPV (LSIL/ASC/KAVON) * * ENDOCERVICAL RELEVANT HISTORY: LMP: 10/11/2009 Prev.normal: 5 YRS AGO : 3 Para: 2 Comment: TUBAL LIGATION SPECIMEN ADEQUACY SATISFACTORY FOR EVALUATION, ENDOCERVICAL TRANSFORMATION ZONE COMPONENT PRESENT GENERAL CATEGORIZATION NEGATIVE FOR INTRAEPITHELIAL LESIONS OR MALIGNANCY INTERPRETATION/ RESULT FUNGAL ORGANISMS MORPHOLOGICALLY CONSISTENT WITH [facility] SPECIES. ADDITIONAL COPIES SENT TO: Screened/Rescreened Electronically Signed Sign Out Date/Time: by: by: KONRAD WAGONER, 10/28/2009 14:46 CT(ASCP) Thin Prep Pap tests are examined with an FDA-approved location-guidance system (57992). Performed @ [facility] [employer] [address] [place] [address] [place] [address] Procedures Date CPT Code Description Status Comment 06/02/2017 03640 CP SHQ Completed 05/27/2017 Diabetic Retinal Eye Exam Completed Dr Arceo 03/29/2017 Diabetic Foot Exam Completed Dr Unger 09/25/2016 Mammogram Completed 07/02/2015 Mammogram Completed 06/24/2015 79265 CPHL SHQ Completed 04/30/2014 77652 Nebulizer Treatment Completed 04/25/2014 24001 Pulse Oximetry Completed 05/03/2012 Colonoscopy Completed 01/15/2012 95731 Finger Or Heel Stick Completed 09/16/2011 36638 Finger Or Heel Stick Completed 02/26/2011 14689 Pulse Oximetry Completed 11/06/2009 Mammogram Completed 04/04/2008 18451 Pulse Oximetry Completed Encounters Type Date Location Provider CPT E/M Dx Office Visit 12/21/2016 3:45p [facility] Office Rose Marie Desai, [address]74 R39.15 Afmanoj-C Office Visit 12/07/2016 3:00p [facility] [place] [address] R35.0 R10.9 N39.0 Office Visit 09/15/2016 8:30a [facility] Office CHANDRIKA Fajardo 85679 K21.9 E78.2 E11.65 Z12.39 Office Visit 11/29/2015 3:00p [facility] Office Arianna Ferguson, CHANDRIKA 37190 H92.01 K08.8 Office Visit 07/12/2015 1:30p [facility] Office CHANDRIKA Fajardo 10629 H92.01 K08.8 Office Visit 05/15/2015 9:15a [facility] Office CHANDRIKA Fajardo 13795 E11.65 H92.01 Office Visit 04/30/2014 11:15a [facility] Office CHANDRIKA Fajardo 51938 488.82 466.0 Office Visit 04/25/2014 10:30a [facility] Office Orestes Newman-C 29951 488.82 Office Visit 02/14/2014 3:15p [facility] Office CHANDRIKA Fajardo 78899 599.0 Office Visit 03/28/2013 10:00a [facility] Orestes Beckham-C 27573 789.09 Office Visit 01/27/2012 11:45a [facility] Orestes Newman-C 96371 558.9 Office Visit 01/15/2012 8:00a [facility] Danya Gallagher Afnp-C 53370 250.02 Office Visit 10/16/2011 8:00a [facility] Danya Gallagher, Afnp-C 08974 250.02 Office Visit 09/16/2011 9:30a [facility] Office Danya Gallagher Afnp-C 21659 592.9 250.02 Office Visit 07/16/2011 9:00a [facility] Danya Gallagher Afnp-C 50512 250.02 Office Visit 07/02/2011 1:30p [facility] Danya Gallagher, Afnp-C 41008 250.02 Office Visit 06/23/2011 2:30p [facility] Danya Gallagher, Afnp-C 49898 250.02 Office Visit 06/19/2011 8:00a [facility] Dayna Gallagher, Afnp-C 31928 616.10 783.21 Office Visit 05/14/2011 1:45p [facility] Danya Gallagher, Afnp-C 68025 054.11 616.10 Office Visit 05/01/2011 11:15a [facility] Danya Gallagher, Afnp-C 96035 616.10 Office Visit 02/26/2011 4:15p [facility] Danya Gallagher, Afnp-C 63977 466.0 Office Visit 10/25/2009 3:30p [facility] Danya Gallahger, Afnp-C 05420 V72.31 616.10 626.2 599.72 278.00 Office Visit 04/04/2008 3:20p [facility] Wai Farmer M.D. 28831 461.0 Office Visit 02/10/2008 9:40a [facility] Wai Farmer M.D. 86008 461.0 Office Visit 11/30/2007 11:30a [facility] Danya Gallagher, Afnp-C 51534 381.01 Office Visit 10/06/2004 6:00p [facility] Office Danya Elliott, Afnp-C 50920 278.00 Office Visit 07/04/2004 9:00a [facility] Danya Elliott, Afnp-C 28204 278.00 Office Visit 06/03/2004 3:00p [facility] Danya Gallagher Orestes-C 57781 278.00 Office Visit 05/06/2004 3:00p [facility] Danya Gallagher Orestes-C 52867 278.00 727.09 Office Visit 08/13/2003 4:30p Main Office Nedra Pena, [employer] [employer] 62109 278.00 Office Visit 04/30/2003 3:30p Main Office Nedra Pena, [facility] 04158 V72.3 783.21 Plan of Care 09/06/2017 - Rose Marie Desai, Orestes-CN39.0 Urinary tract infection, site not specifiedAllNew Medication:Cipro 250 mgComments:~B_~U_Medication Management~b_~u _ Patient Understands medications she's taking? Yes No Are there Barriers to Adherence? Yes No Has the patient been asked about herbal supplements and therapies, and OTC meds? Yes No ~B_~U_Care Plan~b_ ~u_1. Patient has been queried, about patient's goals/preferences and functional/lifestyle goals at relevant visits. If relevant, describe: na2. Treatment goals as explained to the patient: abovewill treat empirically 3. Are there barriers to meeting treatment goals? Yes No If Yes, please describe:4. Self-Management goals as described to the patient: Yes No push fluids , call if no better 48-72 hrs or if sx worsen , despite rx
[2017-10-05] MEDS ORDERED: Heparin VIAL(*) 5000 UNITS/ML VIAL (FIVE THOUSAND) ONE ×2 (06:39→14:47)
[2017-10-05] MEDS ORDERED: Famotidine IV* 10 MG/ML 2 ML (20 mg) ONE (06:39)
[2017-10-05] MEDS ORDERED: ceFAZolin 2 GM PREMIX (*) 2 GM/50 ML BAG IVPB ONE (06:39)
[2017-10-05] MEDS ORDERED: Buffered Lidocaine 0.9% SYRIN* 5 ML/SYR SYRINGE ONE (06:39)
[2017-10-05] MEDS ORDERED: Metoclopramide TAB* 10 MG ONE (06:39)
[2017-10-05] MEDS ORDERED: Ondansetron INJ* 2 MG/ML VIAL ONE (07:09)
[2017-10-05] MEDS ORDERED: Dexamethasone IV* 4 MG/ML 1 ML (4 MG) ONE (07:09)
[2017-10-05] MEDS ORDERED: Propofol* 10 MG/ML 20 ML BTL IV PUSH ONE ×2 (07:09→08:33)
[2017-10-05] MEDS ORDERED: fentaNYL* 50 MCG/ML 5 ML VIAL (250 MCG VIAL) ONE (07:09)
[2017-10-05] MEDS ORDERED: Ketorolac INJ* 30 MG/ML 1 ML VIAL ONE (07:09)
[2017-10-05] MEDS ORDERED: Lidocaine 2% PF * 5 ML VIAL ONE (07:09)
[2017-10-05] MEDS ORDERED: Rocuronium* 10 MG/ML VIAL ONE (07:09)
[2017-10-05] MEDS ORDERED: Midazolam* 1 MG/ML 5 ML VIAL (5 MG) ONE (07:09)
[2017-10-05] MEDS ORDERED: Bupivacaine 0.5% W/EPI SDV* 10 ML VIAL INJ ONE (07:19)
[2017-10-05] MEDS ORDERED: Naloxone* 0.4 MG/ML 1 ML VIAL IV PRN (08:38)
[2017-10-05] MEDS ORDERED: Scopolamine 1.5 mg* PATCH TRANSDERM PRN (08:38)
[2017-10-05] MEDS ORDERED: Ondansetron INJ* 2 MG/ML VIAL IV PRN ×2 (08:38→09:23)
[2017-10-05] MEDS ORDERED: HYDROmorphone INJ* 0.5 MG/0.5 ML SYRINGE ONE (08:40)
[2017-10-05] MEDS ORDERED: Neostigmine Methylsulfate* 2 MG/2 ML SYRINGE ONE (08:45)
[2017-10-05] MEDS ORDERED: Glycopyrrolate IV* 0.2 MG/ML 1 ML VIAL ONE (08:45)
--- NOTE | 2017-10-05 09:15 | OP ---
Operative Report - Blank - Operative Report Date of Operation: 10/05/17 Note: Brief Operative Note Preop Dx: morbid obesity Postop Dx: morbid obesity Procedure: laparoscopic sleeve gastrectomy Anesthesia: GET Surgeon: Fredy Improvement Lead: Miguel Francis PA-C, Noy ESPINOSA Fluids: 1600ml lactated ringers EBL: <10ml Specimen: portion of stomach Drains: None Findings: dictated
[2017-10-05] MEDS ORDERED: HYDROmorphone INJ* 0.5 MG/0.5 ML SYRINGE IV PRN (09:23)
[2017-10-05] MEDS ORDERED: Acetaminophen ADULT LIQ* 650 MG/20.3 ML UDC PO PRN (09:23)
[2017-10-05] MEDS ORDERED: diPHENhydraMINE IV* 50 MG/ML 1 ml VIAL (BENADRYL) SLOW PUSH PRN (09:23)
[2017-10-05] MEDS ORDERED: fentaNYL* 50 MCG/ML 2 ML VIAL (100 MCG VIAL) ONE ×2 (09:40→10:15)
[2017-10-05] MEDS: fentaNYL* 50 MCG/ML 2 ML VIAL (100 MCG VIAL) IV PRN ×3 (09:41→10:16)
[2017-10-05] MEDS ORDERED: INSULIN LISPRO SQ SCH (09:45)
[2017-10-05] MEDS: HYDROmorphone INJ* 0.5 MG/0.5 ML SYRINGE IV PRN ×3 (12:22→20:24)
[2017-10-05] MEDS: Heparin VIAL(*) 5000 UNITS/ML VIAL (FIVE THOUSAND) SUBCUT SCH ×2 (14:49→21:25)
[2017-10-05] MEDS: Famotidine IV* 10 MG/ML 2 ML (20 mg) IV SLOW PU SCH (21:25)
--- NOTE | 2017-10-05 21:35 | OP ---
CC: Wai Farmer MD; Harlan Aleman MD; [facility] * DATE OF OPERATION: 10/05/17 - ROOM #351 DATE OF : 64 SURGEON: Al Daniel MD. CONTINUITY READER: TYSON Garcia ANESTHESIOLOGIST: Dr. Mckeon. ANESTHESIA: General endotracheal. PRE-OP DIAGNOSIS: Morbid obesity. POST-OP DIAGNOSIS: Morbid obesity. OPERATIVE PROCEDURE: Laparoscopic sleeve gastrectomy. ESTIMATED BLOOD LOSS: Minimal. IV FLUIDS: Crystalloids. SPECIMENS: Portion of the stomach. DRAINS: None. COMPLICATIONS: None. COUNTS: The instrument, needle and sponge count were correct. DESCRIPTION OF PROCEDURE: The patient was brought to the operating room and placed on table supine. Sequential compression devices were placed on both lower extremities and general anesthesia was administered. The patient was positioned and padded appropriately. The patient's abdomen was prepped and draped in usual sterile fashion. She received appropriate intravenous antibiotics. Time-out was performed. Local anesthetic was infiltrated into the skin and soft tissue prior to making each incision. Entry into the abdomen was through a left upper quadrant incision accommodating a 5 mm optical trocar. After accessing the peritoneal cavity, carbon dioxide was insufflated to a pressure of 15 mmHg. Under direct visualization, 12 mm bladeless trocar was placed under supraumbilical midline and the right upper quadrant. A 5 mm trocar was placed in the left upper quadrant laterally and Jordy liver retractor was placed percutaneously in the subxiphoid position and used to elevate the left lobe of the liver. Gastric anatomy appeared normal. Pylorus was identified. A 6 cm proximal to this on the greater curvature, the stomach was skeletonized using LigaSure and entering the lesser sac. At the cardia of the stomach, the posterior short gastrics were divided in order to fully mobilize the stomach. The epigastric fat pad was also mobilized. Sleeve gastrectomy was performed over a 40-[place] bougie using the EndoGIA stapler with purple reinforce cartridges. Staple lines were inspected, noted to be intact and hemostatic. The divided portion of the stomach was removed using the endoscopic retrieval bag through the right upper quadrant wound, which was subsequently closed with 0-Vicryl in interrupted fashion. Ports removed. Carbon dioxide was released and skin incisions were closed with 4-0 Monocryl in subcuticular fashion. Steri-strips were applied. The patient tolerated the procedure well, was extubated and transferred to recovery in stable condition. [id number]/[facility] #: [id number] MTDLaurent
[2017-10-06] MEDS: Ketorolac INJ* 30 MG/ML 1 ML VIAL IV PRN ×3 (02:14→16:42)
[2017-10-06] MEDS: Heparin VIAL(*) 5000 UNITS/ML VIAL (FIVE THOUSAND) SUBCUT SCH ×3 (05:31→22:31)
--- NOTE | 2017-10-06 08:07 | PN ---
Progress Note - Progress Note Date of Service: 10/06/17 SOAP: Subjective: Denies need for pain meds today. No N/V/GERD. Objective: Vital Signs Temp 98.5 F 10/06/17 03:37 Pulse 77 10/06/17 03:37 Resp 16 10/06/17 03:37 BP 158/69 10/06/17 03:37 Pulse Ox 99 10/06/17 03:37 Gen: NAD Abd: incisions with dressings c/d/i; soft and min tender Intake & Output 10/05/17 10/06/17 10/06/17 18:59 06:59 18:59 Intake Total 2575 906 970 Output Total 1400 2125 Balance 1175 -1219 970 Intake: IV Fluids 2575 906 970 LR 2575 906 970 Oral 0 Output: Urine 1400 2125 Laboratory Results - last 24 hr 10/05/17 10/05/17 10/05/17 08:19 09:16 11:48 POC Glucose (mg/dL) 183 H 215 H 230 H Assessment: POD#1 s/p LSG. Doing well. Plan: Adv diet. Ambulate. Possible d/c later today or AM.
[2017-10-06] MEDS: Omeprazole CAP* 20 MG PO SCH (08:39)
[2017-10-06] MEDS: Famotidine IV* 10 MG/ML 2 ML (20 mg) IV SLOW PU SCH (08:42)
[2017-10-06] MEDS: HYDROcodone/ACET. 7.5/325 LIQ* 15 ML UDC PO PRN ×2 (12:20→22:26)
[2017-10-06] MEDS: D5W 1/2 NS KCl 20 Meq 1000 ML* 1,000 ML IV SCH ×2 (13:46→22:29)
[2017-10-06] MEDS ORDERED: Atorvastatin* 20 MG TAB PO SCH (18:00)
[2017-10-07] MEDS: Heparin VIAL(*) 5000 UNITS/ML VIAL (FIVE THOUSAND) SUBCUT SCH (06:25)
[2017-10-07] MEDS: D5W 1/2 NS KCl 20 Meq 1000 ML* 1,000 ML IV SCH (06:43)
[2017-10-07] MEDS: Omeprazole CAP* 20 MG PO SCH (07:45)
[2017-10-07 07:52] VITALS: BP 157/81
--- NOTE | 2017-10-07 12:12 | DS ---
CC: Dr. Wai Farmer; Dr. Harlan Aleman * DISCHARGE SUMMARY: DATE OF ADMISSION: 10/05/17 DATE OF DISCHARGE: 10/07/17 PATIENT OF: Al Daniel MD ADMISSION DIAGNOSES: 1. Morbid obesity. 2. Hyperlipidemia. 3. Insulin-dependent diabetes mellitus. 4. Gastroesophageal reflux disease. DISCHARGE DIAGNOSES: 1. Morbid obesity. 2. Hyperlipidemia. 3. Insulin-dependent diabetes mellitus. 4. Gastroesophageal reflux disease. ADMITTING/ATTENDING PHYSICIAN: Al Daniel MD * (DICTATED BY TYSON CHILD) CONSULTATIONS: None. PROCEDURES: Laparoscopic sleeve gastrectomy on 10/05/17. PRIMARY CARE PHYSICIAN: Dr. Wai Farmer and Dr. Harlan Aleman. HISTORY OF PRESENT ILLNESS: Ms. Jenkins is a pleasant 57-year-old female who has been struggling with morbid obesity most of her adult life. The patient had tried multiple attempts to lose weight including diet and exercise regimen that failed to maintain her weight loss. She was evaluated at [facility] and was found to be a good candidate for laparoscopic sleeve gastrectomy to be performed on a later date. HOSPITAL COURSE: The patient was admitted via Same-Day Surgery on 10/05/17. She was taken to the operating room that day and underwent laparoscopic sleeve gastrectomy that was eventually unremarkable. After recovery, she was transferred to the surgical stay unit for observation. She did relatively well with only minimal incisional discomfort. She was ambulatory, out of bed, and in stable condition. Her vitals were taken on a regular basis and showed slight hypertension in the beginning likely related to pain; however, her blood pressure continued to improve every day. She was afebrile and had no further complaints of pain. She started on bariatric clear liquid diet on the first day post-operatively that she tolerated well and continued to follow her diet regimen as planned by bariatric team. She continued to improve and on discharge day, her exam was unremarkable. Her abdomen was soft, nontender, and nondistended and her incisions were clean, dry, and intact with Steri-Strips intact. She will be discharged to home today and will plan for her to follow up with Dr. Daniel next week as scheduled. DISCHARGE MEDICATIONS: Include, 1. Lipitor 20 mg p.o. daily. 2. Insulin lispro subcu injection q.a.c. and q.h.s. per sliding scale. 3. Omeprazole 20 mg p.o. daily. 4. Chewable iron supplements twice a day and chewable multivitamin 1 tablet daily. PROBLEM LIST: 1. Morbid obesity. She is status post laparoscopic sleeve gastrectomy on 10/05. 2. Insulin-dependent diabetes mellitus. 3. Hyperlipidemia. 4. GERD. TYSON CHILD [id number]/[facility] #: [id number] [facility]rent
[2017-10-08] MEDS ORDERED: Scopolamine PATCH Remove* 1 NOTE MISC PATCH OFF ONE (08:40)
== END 2017-10-07 10:20 | disposition home or self-care (01) | DRG 621 ==
LOC: AA 06:01 → SSU 09:16
PROVIDERS: ADMIT Surgery; ATTEND Surgery
PROC: 0DB64Z3 Excision of Stomach, Percutaneous Endoscopic Approach, Vertical (ICD-10-PCS; principal; 2017-10-05 07:30)
DX: E66.01 Morbid (severe) obesity due to excess calories (principal); K21.9 Gastro-esophageal reflux disease without esophagitis; E78.5 Hyperlipidemia, unspecified; G47.30 Sleep apnea, unspecified; E10.9 Type 1 diabetes mellitus without complications; K75.81 Nonalcoholic steatohepatitis (NASH); J45.909 Unspecified asthma, uncomplicated; I10 Essential (primary) hypertension; Z98.51 Tubal ligation status; Z80.0 Family history of malignant neoplasm of digestive organs; Z68.41 Body mass index [BMI] 40.0-44.9, adult; Z83.49 Family history of other endocrine, nutritional and metabolic diseases; Z72.89 Other problems related to lifestyle; Z96.41 Presence of insulin pump (external) (internal)
CPT/HCPCS: 43775; 88307; A9270-GY; J0690; J1100; J1170; J1644; J1885; J2250; J2405; J2704; J3010